=== PATIENT | male | born 1955 | race Caucasian/White ===

== ENCOUNTER 2018-02-06 10:25 | Outpatient (REF) | payer BC, SELFPAY ==
[2018-02-06 19:55] LABS: Anion Gap 8.3 mmol/L (3-11); BUN 22 mg/dL (7-18); CO2 29.7 mmol/L (21.0-32.0); CREATININE 1.14 mg/dL (0.70-1.30); Chloride 100 mmol/L (98-107); Glucose 105 mg/dL (70-100); Potassium 4.7 mmol/L (3.5-5.1); Sodium 138 mmol/L (136-145)
== END 2018-02-06 10:45 ==
LOC: NCHCN 10:25
PROVIDERS: Visit Provider Physician Assistant Medical
DX: I10 Essential (primary) hypertension (principal)
CPT/HCPCS: 80048

== ENCOUNTER 2020-02-25 14:06 | Outpatient (REF) | payer BC, SELFPAY ==
[2020-02-25 20:06] LABS: Anion Gap 9.7 mmol/L (3-11); BUN 18 mg/dL (7-18); CO2 27.3 mmol/L (21.0-32.0); CREATININE 1.04 mg/dL (0.70-1.30); Calcium 8.9 mg/dL (8.5-10.1); Calculated LDL 167 mg/dL (<100); Chloride 101 mmol/L (98-107); Cholesterol 219 mg/dL (<200); Glucose 106 mg/dL (74-106); HDL Cholesterol 33 mg/dL (40-60); Potassium 4.4 mmol/L (3.5-5.1); Sodium 138 mmol/L (136-145); Triglyceride 96 mg/dL (<150)
== END 2020-02-25 14:26 ==
LOC: NCHCN 14:06
PROVIDERS: Visit Provider Nurse Practitioner Family
DX: E78.5 Hyperlipidemia, unspecified (principal); I10 Essential (primary) hypertension
CPT/HCPCS: 80048; 80061

== ENCOUNTER 2020-05-12 16:15 | Outpatient (REF) | payer BC, SELFPAY ==
[2020-05-12 19:43] LABS: ALT 53 U/L (16-63); AST 30 U/L (15-37); Calculated LDL 62 mg/dL (<100); Cholesterol 122 mg/dL (<200); HDL Cholesterol 32 mg/dL (40-60); Triglyceride 141 mg/dL (<150)
== END 2020-05-12 16:35 ==
LOC: NCHCN 16:15
PROVIDERS: PCP Nurse Practitioner Family; Visit Provider Nurse Practitioner Family
DX: E78.5 Hyperlipidemia, unspecified (principal); I10 Essential (primary) hypertension
CPT/HCPCS: 80061; 84450; 84460

== ENCOUNTER 2021-02-24 14:19 | Outpatient (REF) | payer MEDICARE, SELFPAY ==
[2021-02-24 19:56] LABS: ALT 43 U/L (16-63); AST 23 U/L (15-37); Albumin 3.9 g/dL (3.4-5.0); Alkaline Phosphatase 80 U/L (46-116); Anion Gap 6.2 mmol/L (3-11); BUN 21 mg/dL (7-18); Bilirubin, Total 1.1 mg/dL (0.2-1.0); CO2 29.8 mmol/L (21.0-32.0); CREATININE 1.1 mg/dL (0.70-1.30); Chloride 103 mmol/L (98-107); Glucose 108 mg/dL (74-106); Potassium 4.6 mmol/L (3.5-5.1); Sodium 139 mmol/L (136-145); Total Protein 7.1 g/dL (6.4-8.2)
== END 2021-02-24 14:20 | disposition home or self-care (01) ==
LOC: NCHCN 14:19
PROVIDERS: PCP Nurse Practitioner Family; Visit Provider Nurse Practitioner Family
DX: I10 Essential (primary) hypertension (principal)
CPT/HCPCS: 80053

== ENCOUNTER 2021-08-25 10:14 | Outpatient (REF) | payer MEDICARE, SELFPAY ==
[2021-08-25 18:59] LABS: ALT 41 U/L (16-63); AST 23 U/L (15-37); Albumin 4.1 g/dL (3.4-5.0); Alkaline Phosphatase 75 U/L (46-116); Anion Gap 8.2 mmol/L (3-11); BUN 19 mg/dL (7-18); Bilirubin, Total 1.5 mg/dL (0.2-1.0); CO2 25.8 mmol/L (21.0-32.0); CREATININE 1.1 mg/dL (0.70-1.30); Calcium 8.7 mg/dL (8.5-10.1); Chloride 102 mmol/L (98-107); Glucose 104 mg/dL (74-106); Potassium 4.2 mmol/L (3.5-5.1); Sodium 136 mmol/L (136-145); Total Protein 7.3 g/dL (6.4-8.2)
[2021-08-26 18:10] LABS: PSA, Screening 2.2 ng/mL (<=4.5)
== END 2021-08-25 10:15 | disposition home or self-care (01) ==
LOC: NCHCN 10:14
PROVIDERS: PCP Nurse Practitioner Family; Visit Provider Nurse Practitioner Family
DX: I10 Essential (primary) hypertension (principal); E78.5 Hyperlipidemia, unspecified; Z12.5 Encounter for screening for malignant neoplasm of prostate
CPT/HCPCS: 80053; 84153

== ENCOUNTER 2022-08-24 12:37 | Outpatient (REF) | payer MEDICARE, SELFPAY ==
[2022-08-24 18:50] LABS: ALT 36 U/L (16-63); AST 24 U/L (15-37); Albumin 3.9 g/dL (3.4-5.0); Alkaline Phosphatase 82 U/L (46-116); BUN 24 mg/dL (7-18); Bilirubin, Total 1.1 mg/dL (0.2-1.0); CREATININE 1.2 mg/dL (0.70-1.30); Calcium 9.4 mg/dL (8.5-10.1); Chloride 102 mmol/L (98-107); Glucose 108 mg/dL (74-106); Sodium 139 mmol/L (136-145); Total Protein 7.7 g/dL (6.4-8.2)
== END 2022-08-24 12:38 | disposition home or self-care (01) ==
LOC: NCHCN 12:37
PROVIDERS: PCP Nurse Practitioner Family; Visit Provider Nurse Practitioner Family
DX: I10 Essential (primary) hypertension (principal)
CPT/HCPCS: 80053

== ENCOUNTER 2024-02-28 13:08 | Outpatient (REF) | payer MEDICARE, SELFPAY ==
--- OUTSIDE RECORDS SUMMARY | 2024-02-28 13:20 | XMS_ITS | Encounter Summary ---
Author Organization [facility] Address [facility] [place] [address] Care Team Providers Care Enterprise Manager Name Role Phone Kamran Boo MD Primary Care Provider [phone] Reason for Visit * Reason Comments Skin Check * Consultation (Routine) - Closed Specialty Diagnoses / Procedures Referred By Antony t Referred To Contact Dermatology Diagnoses Other specified acute skin changes due to ultraviolet radiation Veronika Siddiqui APRN [address] [place] [address] Louie Oh MD [address] [place] [address], [facility] [place] [address] Referral ID Status Reason Start Date Expiration Date V isits Requested Visits Authorized [id number] Closed Consult, Test & Treat PCP Updated and/or Approved 08/31/2022 08/31/2023 1 1 Encounter Details Date Type Department Care Team (Late st Contact Info) Description 12/16/2022 3:15 PM EDT Office Visit Dermatology at [address] [address] Louie Oh MD [address] [place] [address], [facility] DERMATOLOGY [place], [place] [id number] Nevus of back Social History Tobacco Use Types Packs/Day Years Used Date Smoking Tobacco: Former Smokeless Tobacco: Never Alcohol Use Standard Drinks/Week Comments Yes 0 (1 standard drink = 0.6 oz pur e alcohol) 5/nightly Sex and Gender Information Value Date Recorded Sex Assigned at Not on file Gender Identity Not on file Sexual Orientation Not on file documented as of this encounter Progress Notes * Louie Oh MD - 12/16/2022 3:15 PM EDT Problem: Skin checkup Carlos is a 66-year-old gentleman who is referred by his PCP Veronika Siddiqui for general skin checkup.He grew up in [place] and now lives in [facility]. He denies any personal family history of skin cancer. He has been seen in the past by Dr. Tiny Meza and had a benign examination at that time as well. He does have a sore area on his left ear. Physical examination reveals well tanned 66-year-old gentleman who has solar elastotic nodules on the superior lateral helical rim of the left ear but without any areas of discrete erosion or hyperkeratosis. This is suggestive of early chondrodermatitis nodularis helicis. I do not see any malignancy. Examination reveals a number of Elmo telangiectasias on his chest shoulders and back without any in the oral cavity. He does not have any history of bleeding/GI bleeding to suggest Osler Leahy Rendu. He has benign examination of the head and the neck the chest the back the hands on forearms without any evidence of any cutaneous malignancies. Assessment plan: Benign skin examination 1. Patient reassured about his benign skin examination 2. Reinforced sun avoidance precautions 3. Recommend return to clinic on an as needed basis. CNH left ear 1. 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 Again discussed ability of sleeping on his right side or back keeping pressure off of the left ear. 3. Reassured about the benign nature of this condition. CC: Kamran Boo MD documented in this encounter Plan of Treatment Not on file documented as of this encounter Visit Diagnoses Diagnosis Nevus of back Benign neoplasm of skin of trunk, except scrotum documented in this encounter Care Teams Enterprise Manager Relationship Specialty Start Date End Date Kamran Boo MD [address] [place] [id number] PCP - General General Internal Medicine 03/19/20 documented as of this encounter
--- OUTSIDE RECORDS SUMMARY | 2024-02-28 13:20 | XMS_ITS | Clinical Summary ---
Author Organization [facility] Address [address] [place] [address] Care Team Providers Care Environmental Marketer Name Role Phone Unavailable Primary Care Provider Unavailabl e Social History Tobacco Use Types Packs/Day Years Used Date Smoking Tobacco: Never Assessed Sex and Gender Information Value Date Recorded Sex Assigned at Not on file Gender Identity Not on file Sexual Orientation Not on file Plan of Treatment Health Maintenance Due Date Last Done Comments Hepatitis C Screen 1955 RSV Immunization ( o r 60+ Years) (1 - 1-dose 60+ series) 2015 Fall Risk Screening 12/26/2020 COVID-19 Vaccine ( season) 2023
--- OUTSIDE RECORDS SUMMARY | 2024-02-28 13:20 | XMS_ITS ---
Author Organization Unknown ALLERGIES AND ADVERSE REACTIONS No information ASSESSMENT No information CHIEF COMPLAINT No information MEDICATIONS No information OBJECTIVE DATA No information PHYSICAL EXAMINATION No information TREATMENT PLAN Planned Care Start Date Provider Encounter for Check-up [id number] PROBLEMS No information RESULTS No information REVIEW OF SYSTEMS No information SUBJECTIVE DATA No information VITAL SIGNS No information
--- OUTSIDE RECORDS SUMMARY | 2024-02-28 13:20 | XMS_ITS | Encounter Summary ---
Author Organization [facility] [place] [address] Care Team Providers Care Binding End Stitcher Name Role Phone Kamran Boo MD Primary Care Provider [phone] Reason for Visit * Reason Comments Skin Lesion left ear skin lesion , f/u Encounter Details Date Type Department Care Team (Latest Contact Info) Description 07/16/2020 9:00 AM EST Office Visit Dermatology at [address] [phone] Tiny Meza MD [address] [place] [id number] Chondrodermatitis nodularis helicis of left ear; Neoplasm of uncertain behavior Social History Tobacco Use Types Packs/Day Years Used Date Smoking Tobacco: Former Smokeless Tobacco: Never Alcohol Use Standard Drinks/Week Comments Yes 0 (1 standard drink = 0.6 oz pur e alcohol) 5/nightly Sex and Gender Information Value Date Recorded Sex Assigned at Not on file Gender Identity Not on file Sexual Orientation Not on file documented as of this encounter Last Filed Vital Signs Vital Sign Reading Time Taken Comments Blood Pressure - - Pulse - - Temperature - - Respiratory Rate - - Oxygen Saturation - - Inhaled Oxygen Concentration - - Weight 81.6 kg (180 lb) 07/16/2020 9:00 AM EST Height 170.2 cm (5' 7) 07/16/2020 9:00 AM EST Body Mass Index 28.19 07/16/2020 9:00 AM EST documented in this encounter Progress Notes * Tiny Meza MD - 07/16/2020 9:00 AM EST DERMATOLOGY - ESTABLISHED PATIENT FOLLOW-UP Date of service: 07/16/2020 Carlos Waterman : 1955, 64 y.o. CC: f/u [facility] HPI: Carlos Waterman is a 64 y.o. male last seen by me on 03/19/2020. Mr. Waterman returns today for f/u [facility] s/p cryo at last visit which helped but then lesion grew back and is now irritating. He would like it removed. Relevant Skin History: - Okay to leave detailed message with results? yes Skin Cancer History Family History: Melanoma: none Social History: - n/a Medications: Current Outpatient Medications Medication Sig Dispense Refill ??? atorvastatin (Lipitor) 40 mg Tablet TAKE 1 TABLET BY MOUTH AT BEDTIME ??? hydroCHLOROthiazide (Hydrodiuril) 12.5 mg Tablet Take 12.5 mg by mouth daily. ??? lisinopriL (Prinivil;Zestril) 10 mg Tablet TAKE ONE TABLET BY MOUTH EVERY DAY No current facility-administered medications for this visit. Allergies: No Known Allergies Review of Systems: - General: Feels well. - Skin: No other skin concerns. Examination: - Constitutional: Patient was alert, well-appearing and in no noticeable distress. - Skin: Skin examination of the left ear Diagnosis/Skin findings/Assessment/Plan: 1. Neoplasm uncertain behavior, left helix 4 mm crusted white papule - Rule out chondrodermatitis nodularis helices vs AK BIOPSY PROCEDURE NOTE LOCATION: left ear helix Verbal consent was given by patient to obtain and chart photographs into [facility] if applicable. Verbal consent obtained to perform a diagnostic skin biopsy after risks and benefits of the procedure were reviewed with the patient including but not limited to bleeding, infection, scar, cosmetic defect, recurrence, damage to underlying structures and failure to diagnose. SHAVE BIOPSY After swabbing the area with isopropyl alcohol, the area was anesthetized with Lidocaine with 1:100,000 epinephrine and a biopsy was taken. Hemostasis obtained and the wound was dressed with Vaselineand a dressing. There were no complications. The patient tolerated the procedure well. Post-procedure expectations, wound care and activity restrictions were reviewed. The patient was told to expect results by the end of 2 weeks, and to call if they have not receivedthe results by that time. RTC: One month or PRN The following photos were obtained with patient consent: Note initiated by Tiny Meza MD. Tiny Meza MD Production Worker Department of Dermatology [facility] documented in this encounter Plan of Treatment Not on file documented as of this encounter Procedures Procedure Name Priority Date/Time Associated Diagnosis Comments SPECIMEN TO PATHOLOGY Routine 07/16/2020 9:26 AM EST Neoplasm of uncertain behavior documented in this encounter Results * Specimen to Pathology (07/16/2020 9:26 AM EST) AP Specimen 07/16/2020 9:26 AM EST 07/16/2020 9:26 AM EST Narrative [facility] - 07/16/2020 9:26 AM EST Specimen requisition ordered. ??Separate Pathology report to follow Tiny Meza MD PATHOLOGY/CYTOLOGY ORDERABLES Performing Organization Address City/State/[facility] Co de Phone Number [facility] [place] [address] documented in this encounter Visit Diagnoses Diagnosis Chondrodermatitis nodularis helicis of left ear Neoplasm of uncertain behavior Neoplasm of uncertain behavior, site unspecified documented in this encounter Care Teams Binding End Stitcher Relationship Specialty Start Date End Date Kamran Boo MD [address] [place] [id number] PCP - General General Internal Medicine 03/19/20 documented as of this encounter
--- OUTSIDE RECORDS SUMMARY | 2024-02-28 13:20 | XMS_ITS | Continuity of Care Document ---
Author Organization [facility] Address [address] [place] [address] Care Team Providers Care Speech Language Therapist Name Role Phone [facility], Kamran Hoyt Primary Care Physician [facility] Date(s): 03/04/23 - 03/04/23 [facility] [address] [place] [address] Encounter Diagnosis Obstructive sleep apnea, adult(Discharge Diagnosis) - 03/04/23 Discharge Disposition: Home or Self Care Attending Physician: Roseanne Godinez [employer]AL [employer] JUDGE Allergies, Adverse Reactions, Alerts No Known Allergies Assessment and Plan Future Appointments Immunizations Given and Recorded Vaccine Date Status Refusal Reason influenza virus vaccine, inactivated 02/23/22 Compa rded SARS-CoV-2 (COVID-19) mRNA BNT-162b2 vax 1 02/02/22 Recorded SARS-CoV-2 (COVID-19) mRNA-1273 vaccine 08/31/21 R ecorded SARS-CoV-2 (COVID-19) mRNA-1273 vaccine 03/09/21 R ecorded SARS-CoV-2 (COVID-19) mRNA-1273 vaccine 07/02/20 R ecorded SARS-CoV-2 (COVID-19) mRNA-1273 vaccine 06/04/20 R ecorded influenza virus vaccine, live 02/24/21 Recorded influenza virus vaccine, live 03/14/19 Recorded 1Result Comment: BIVALENT BOOSTER Medications aspirin 81 mg oral capsule 81 mg = 1 cap, Oral, Daily, do not exceed 48 capsules in 24 hours, # 30 cap, 0 Refill(s) Start Date: 12/22/22 Status: Ordered Fish Oil oral capsule 1 cap, Oral, Daily, # 100 cap, 0 Refill(s) Start Date: 12/22/22 Status: Ordered hydroCHLOROthiazide 12.5 mg oral capsule 12.5 mg = 1 cap, Oral, Daily, # 30 cap, 0 Refill(s) Start Date: 12/22/22 Status: Ordered lisinopril 10 mg oral tablet 10 mg = 1 tab, Oral, Daily, # 30 tab, 0 Refill(s) Start Date: 12/22/22 Status: Ordered rosuvastatin 10 mg oral capsule 10 mg = 1 cap, Oral, Daily, # 30 cap, 0 Refill(s) Start Date: 12/24/22 Status: Ordered Viagra 0 Refill(s) Start Date: 12/22/22 Status: Ordered Problem List Condition Confirmation Course Effective Dates Status H ealth Status Informant Elevated bilirubin Confirmed Active CNH (chondrodermatitis nodularis helicis) Confirmed Active Foot anomaly, congenital Confirmed Active Rotator cuff syndrome Confirmed Active ED (erectile dysfunction) Confirmed Active Former smoker Confirmed Active Heavy alcohol consumption Confirmed Active Hyperlipidemia Confirmed Active Hypertension Confirmed Active Marijuana use Confirmed Active Myalgia Confirmed Active Nocturia Confirmed Active Obesity Confirmed Active Obstructive sleep apnea, adult Confirmed Active Screening for prostate cancer Confirmed Active Snoring Confirmed Active Sun-damaged skin Confirmed Active Vital Signs Most recent to oldest [Reference Range]: 1 Peripheral Pulse Rate [60-100 bpm] 86 bp m (03/04/23 9:08 AM) Blood Pressure [90-140/60-90 mmHg] 123/7 7mmHg (03/04/23 9:08 AM) Mean Arterial Pressure, Cuff [65-140 mmH g] 92 mmHg (03/04/23 9:08 AM) Weight 83.91 kg (03/04/23 9:08 AM) Weight Measured (lbs) 184.99 lb (03/04/23 9:08 AM) Height 169 cm (03/04/23 9:08 AM) Height/Length Measured (inches) 66.54 in ch (03/04/23 9:08 AM) BSA Measured 1.98 m2 (03/04/23 9:08 AM) Body Mass Index 29.38 kg/m2 (03/04/23 9:08 AM) Social History Social History Type Response Tobacco Former tobacco user Tobacco Use:. Sex Male Physician Outpatient Note * Roseanne Godinez TRIAL [address] JUDGE: PERFORM Event Display: Office Clinic Note Physician Authored Date: [id number] CARLOS LAMB :1955 Age:67 years Sex:Male Visit Date:03/04/2023 Primary Care Physician: [facility], Kamran Hoyt MD History of Present Illness Carlos Lamb has a visit for PSG results. ?? Carlos was see by me on 12/24/2022. He has a medical history to include HTN, HLD, ED, and overweight. ?? He noted symptoms of snoring, excessive daytime sleepiness (ESS 11 with a daily nap), witnessed apneas in sleep, nocturnal choking/gasping, and??nocturia. ?? Polysomnogram was completed on??02/10/2023 (BMI 29.4) and I reviewed the results with??him in detailtoday. Sleep efficiency was 63%, AHI 34.9/hr, RDI 54.7/hr, REM AHI 41.4/hr, REM RDI 54.3/hr, supineAHI 35/hr, right lateral AHI N/A, left lateral AHI N/A, sp02 yevgeniy 79%,??28 minutes were spent at asaturation <88%, arousal index 47/hr, PLMi 1.7/hr, PLM arousal index 0/hr. EKG showed NSR with ra re PVCs. ? Carlos says his sleep for the PSG was??worse ??compared to a typical night at home. He still has above symptoms and no new sleep complaints today. He says he tends to sleep most of the night on his back. Physical Exam Vitals & Measurements HR:??86??(Peripheral)?? BP:??123/77?? SpO2:??96%?? HT:??169??cm?? WT:??83.91??kg?? BMI:??29.38?? BSA:??1.98?? GENERAL: answers questions appropriately, well groomed, over weight. HEAD: normocephalic and atraumatic. EYES: non icteric LUNGS: CTA all león. Good air movement throughout. CARDIO: RRR without murmur, gallop or thrill. NEURO: alert and oriented, normal gait. PYSCH: normal mood and affect. CUTANEOUS: no overt lesions or rashes.?? Clinic Assessment/Plan 1.??Obstructive sleep apnea, adult??G47.33 SANDRINE diagnosed on recent PSG with an AHI of 35/hr. He slept only supine for the study but he reportshe typically only sleeps supine at home as well. Given the severity of his sleep apnea, CPAP is therecommended treatment. CPAP 6-16 cm is ordered through [facility] in [place] as he wants an in person set-up with a RT and not to have the CPAP mailed to him with a remote set-up. I discussed di fferent mask options and the importance of finding the mask that will work for him within the first30 days. I discussed how to adjust humidity for dryness/congestion and that the goal will be to usenightly for total sleep time. I covered insurance compliance requirements and the DME's mask exchange policy.?? I will see him back between 31-90 days after starting CPAP and??he is ??encouraged to call me sooner he is having any difficulties tolerating CPAP. Drowsy driving precautions were reviewed. I provided greater than 30 minutes in the care of this patient, more than half the time was spent in [id number] counseling. Problem List/Past Medical History Ongoing CNH (chondrodermatitis nodularis helicis) ED (erectile dysfunction) Elevated bilirubin Foot anomaly, congenital Former smoker Heavy alcohol consumption Hyperlipidemia Hypertension Marijuana use Myalgia Nocturia Obesity Obstructive sleep apnea, adult Rotator cuff syndrome Screening for prostate cancer Snoring Sun-damaged skin Historical No qualifying data Medications What How Much When Instructions Unchanged aspirin (aspirin 81 mg oral capsule) 1 Capsules Oral (given by mouth) Every day do not exceed 48 capsules in 24 hours Contact prescribing physician if questions or concerns ?? Unchanged hydroCHLOROthiazide (hydroCHLOROthiazide 12.5 mg oral capsule) 1 Capsules Oral (given by mouth) Every day Contact prescribing physician if questions or concerns ?? Unchanged lisinopril (lisinopril 10 mg oral tablet) 1 tab Oral (given by mouth) Every day Contact prescribing physician if questions or concerns ?? Unchanged omega-3 polyunsaturated fatty acids (Fish Oil oral capsule) 1 Capsules Oral (given by mouth) Every day Contact prescribing physician if questions or concerns ?? Unchanged rosuvastatin (rosuvastatin 10 mg oral capsule) 1 Capsules Oral (given by mouth) Every day Contact prescribing physician if questions or concerns ?? Unchanged sildenafil (Viagra) Contact prescribing physician if questions or concerns ?? Allergies No Known Allergies Social History Electronic Cigarette/Vaping Electronic Cigarette Use: Never. Tobacco Former tobacco user Tobacco Use:. Immunizations Vaccine Date Status influenza virus vaccine, inactivated 02/23/2022 Recorded SARS-CoV-2 (COVID-19) mRNA BNT-162b2 vax 02/02/2022 Recorded Comments : BIVALENT BOOSTER SARS-CoV-2 (COVID-19) mRNA-1273 vaccine 08/31/2021 Recorded SARS-CoV-2 (COVID-19) mRNA-1273 vaccine 03/09/2021 Recorded influenza virus vaccine, live 02/24/2021 Recorded SARS-CoV-2 (COVID-19) mRNA-1273 vaccine 07/02/2020 Recorded SARS-CoV-2 (COVID-19) mRNA-1273 vaccine 06/04/2020 Recorded influenza virus vaccine, live 03/14/2019 Recorded Electronically Signed on 03/04/23 09:36 AM Roseanne Godinez NP Patient Care team information Care Team Personnel Name: Kamran Melendrez MD Position: No Access Member Role: Primary Care Physician Address: Address: [address] Care Team Related Persons Name: NETTIE MARIEE
--- OUTSIDE RECORDS SUMMARY | 2024-02-28 13:20 | XMS_ITS | Encounter Summary ---
Author Organization [facility] Address [address] [place] [address] Care Team Providers Care Vp Platforms Name Role Phone Unavailable Primary Care Provider Unavailabl e Encounter Details Date Type Department Care Team (Late st Contact Info) Description 08/25/2021 Lab Requisition [facility] Pathology & Laboratory Medicine - [facility] [address] [place] [address] Outr Resulting Lab, Provider Social History Tobacco Use Types Packs/Day Years Used Date Smoking Tobacco: Never Assessed Sex and Gender Information Value Date Recorded Sex Assigned at Not on file Gender Identity Not on file Sexual Orientation Not on file documented as of this encounter Plan of Treatment Not on file documented as of this encounter Procedures Procedure Name Priority Date/Time Associated Diagnosis Comments PSA TOTAL, DIAGNOSTIC Routine 08/25/2021 9:30 EDT documented in this encounter Results * PSA TOTAL, DIAGNOSTIC (08/25/2021 9:30 EDT) PSA 2.2 <=4.5 ng/mL 08/26/2021 18:06 EDT [facility] Blood VENOUS BLOOD / Unknown 08/25/2021 9:30 EDT 08/26/2021 16:44 EDT Narrative [facility] - 08/26/2021 18:06 EDT NOTE: Serum PSA concentration should not be interpreted as absolute evidence for the presence or absence of malignant disease. Assayed on Siemens ADVIA Centaur XPT using chemiluminescent technology.??Values obtained by using different assay methods cannot be used interchangeably. Provider Outr Resulting Lab CHEMISTRY & BLOOD GAS ORDERABLES [facility] [address] [place] [address] documented in this encounter Visit Diagnoses Not on filedocumented in this encounter
--- OUTSIDE RECORDS SUMMARY | 2024-02-28 13:20 | XMS_ITS | Clinical Summary ---
Author Organization [facility] Address [facility] [place] [address] Care Team Providers Care Net Manager Name Role Phone Kamran Boo MD Primary Care Provider [phone] Allergies No known active allergies Medications Medication Sig Dispensed Refills Start Date End Date Status hydroCHLOROthiazide (Hydrodiuril) 12.5 mg Tablet Take 12.5 mg by mouth daily. 02/23/2020 Active lisinopriL (Prinivil;Zestril) 10 mg Tablet TAKE ONE TABLET BY MOUTH EVERY DAY 12/31/2019 Active rosuvastatin (Crestor) 10 mg tablet Take 10 mg by mouth nightly. 12/01/2022 Active Active Problems Problem Noted Date Diagnosed Date Foot anomaly, congenital 07/15/2020 Chondrodermatitis nodularis helicis 05/16/2020 Telangiectasis 05/16/2020 Overview (07/15/2020): Back, scattered Pepper angioma 05/16/2020 Overview (07/15/2020): On back and chest Ear lesion 03/04/2020 Hyperlipidemia 03/04/2020 Hypertension 03/04/2020 Rotator cuff syndrome of right shoulder 03/04/20 20 Male erectile dysfunction 03/04/2020 Alcoholism 03/04/2020 Overview (07/15/2020): Daily alcohol use Cigarette smoker 03/04/2020 Marijuana use 03/04/2020 Social History Tobacco Use Types Packs/Day Years Used Date Smoking Tobacco: Former Smokeless Tobacco: Never Alcohol Use Standard Drinks/Week Comments Yes 0 (1 standard drink = 0.6 oz pur e alcohol) 5/nightly Sex and Gender Information Value Date Recorded Sex Assigned at Not on file Gender Identity Not on file Sexual Orientation Not on file Last Filed Vital Signs Vital Sign Reading Time Taken Comments Blood Pressure - - Pulse - - Temperature - - Respiratory Rate - - Oxygen Saturation - - Inhaled Oxygen Concentration - - Weight 81.6 kg (180 lb) 07/16/2020 9:00 AM EST Height 170.2 cm (5' 7) 07/16/2020 9:00 AM EST Body Mass Index 28.19 07/16/2020 9:00 AM EST Plan of Treatment Health Maintenance Due Date Last Done Comments CT Colonography 1955 Colonoscopy 1955 Colorectal Cancer Screening 1955 FIT DNA 1955 FIT 1955 Sigmoidoscopy (10 year) with FIT yearly 1955 Sigmoidoscopy 1955 Pneumoccocal Vaccine: 65+ (1 of 2 - PCV) 12/26/1961 Hepatitis C Screening 12/26/1973 Tetanus/Diphtheria/Pertussis Vaccines (1 - Tdap) 12/26 Zoster vaccine (1 of 2) 12/26/2005 Advance Directive 12/26/2010 AAA Screen 12/26/2020 Covid-19 Vaccine (1 - 2022- season) 2024 Influenza (Flu) vaccine (1 o f 1 - Influenza standard series) 01/15/2024 Care Teams Net Manager Relationship Specialty Start Date End Date Kamran Boo MD [address] [place] [address] PCP - General General Internal Medicine 03/19/20
--- OUTSIDE RECORDS SUMMARY | 2024-02-28 13:20 | XMS_ITS | Encounter Summary ---
Author Organization [facility] Address [facility] [place] [address] Care Team Providers Care Dish Up Person Name Role Phone Kamran Boo MD Primary Care Provider [phone] Reason for Visit * Reason Comments Skin Lesion * Consultation (Routine) - Specialty Diagnoses / Procedures Referred By Contmilton t Referred To Contact Dermatology Diagnoses Other specified disorders of left ear LT Ear Lesion; New Patient-Notes Received Procedures Consult Sharonda Villela, RAILROAD CARMAN [address] [place] [address] Tiny Meza MD [address] [place] [id number] Referral ID Status Reason Start Date Expiration Date V isits Requested Visits Authorized [id number] Consult, Test & Treat PCP Updated and/or Approved 02/25/2020 08/25/2020 6 6 Encounter Details Date Type Department Care Team (Latest Contact Info) Description 03/19/2020 10:45 AM EST Office Visit Dermatology at [address] [phone] Tiny Meza MD [address] [place] [id number] Chondrodermatitis nodularis helicis, unspecified laterality; Pepper angioma; Telangiectasia of skin Social History Tobacco Use Types Packs/Day Years Used Date Smoking Tobacco: Never Assessed Sex and Gender Information Value Date Recorded Sex Assigned at Not on file Gender Identity Not on file Sexual Orientation Not on file documented as of this encounter Progress Notes * Tiny Meza MD - 03/19/2020 10:45 AM EST Images from the original note were not included. DERMATOLOGY - NEW PATIENT NOTE Date of service: 03/19/2020 Carlos Waterman : 1955, 64 y.o. Chief Complaint: Chief Complaint Patient presents with ??? Skin Lesion HPI: Carlos Waterman is a 64 y.o. male referred by Sharonda Villela APRN with the following concerns: Here today for a skin lesion on his left ear. It has been present for a couple of years. It is painful when he sleeps on it. Relevant Skin History - Okay to leave detailed message with results? yes - Skin cancer (including type): no Family History: Melanoma: no Relevant Social History: - -l[facility] in [facility] Meds: No current outpatient medications on file. No current facility-administered medications for this visit. Allergies: Not on File Review of Systems: - General: Feels well - Skin: No other skin concerns. Examination: - Constitutional: Patient was alert, well-appearing and in no noticeable distress. - Focused Exam: Skin examination of the left ear , face, scalp, chest, abdomen, neck, back and armswas normal with the exception of the findings listed below - A nurse/MA was present and on standby during my examination. Diagnosis/Skin findings/Assessment/Plan: 1. Chondrodermatitis Nodularis Helicis [firm, mildly tender, pale bead-like papules along the inferior edge of the left superior helical rim] - etiology stemming from chronic irritation and actinic exposure leading to inflammation of underlying cartilage reviewed with patient - discussed treatment strategies such as silicone gel sheets, special foam cutout pillows, and other methods to reduce pressure on the affected area. Also discussed cryotherapy vs biopsy if lesion isvery irritating - no significant inflammation to address with potent topical steroids - differential dx of AK vs SCC also reviewed and patient advised to RTC for repeat evaluation and biopsy if sx worsen. Biopsy of site offered today. Patient elected for cryotherpay and will return inone month if lesion has not resolved. After the risks and benefits of the procedure were reviewed with the patient including but not limited to pain, blistering, bleeding, infection, scar, hypopigmentation, cosmetic defect, recurrence, and damage to underlying structures, and despite these risks, the patient wished to proceed. Lesions were treated with liquid nitrogen using the cryospray method technique with 2-3 mm ennis margins andwith 2 freeze-thaw cycles. The patient tolerated the procedure well without complications. Local care discussed and the patient was sent home with a wound care sheet. All questions were answered. 2. Matted telangiectasias, back, scattered - discussed that this could be related to the 5 drinks he has per night and that he should have liver enzymes checked with PCP. 3. Pepper Angioma(s), bright red 2-3 mm papules on back and chest -benign, ressured RTC: One month if not resolved Note initiated by JAGJIT SOMERS LPN. I, JAGJIT SOMERS LPN, have performed the documentation for this encounter in the presence of and acting as a scribe for Tiny Meza MD. I performed the services which were documented by the scribe, and I agree with the accuracy of the documentation in this encounter. Tiny Meza MD Reviewed and signed by Tiny Meza MD Department of Dermatology [facility] documented in this encounter Plan of Treatment Not on file documented as of this encounter Visit Diagnoses Diagnosis Chondrodermatitis nodularis helicis, unspecified laterality Pepper angioma Nevus, non-neoplastic Telangiectasia of skin Other and unspecified capillary diseases documented in this encounter Care Teams Dish Up Person Relationship Specialty Start Date End Date Kamran Boo MD [address] [place] [id number] PCP - General General Internal Medicine 03/19/20 documented as of this encounter
--- OUTSIDE RECORDS SUMMARY | 2024-02-28 13:20 | XMS_ITS | Encounter Summary ---
Author Organization [facility] Address [facility] [place] [address] Care Team Providers Care Excel Vba Developer Name Role Phone Kamran Boo MD Primary Care Provider [phone] Encounter Details Date Type Department Care Team (Latest Contact Info) Description 07/16/2020 1:07 PM EST - 07/16/2020 11:59 PM EST Hospital En[place] [id number] Discharge Disposition: Home Social History Tobacco Use Types Packs/Day Years Used Date Smoking Tobacco: Former Smokeless Tobacco: Never Alcohol Use Standard Drinks/Week Comments Yes 0 (1 standard drink = 0.6 oz pur e alcohol) 5/nightly Sex and Gender Information Value Date Recorded Sex Assigned at Not on file Gender Identity Not on file Sexual Orientation Not on file documented as of this encounter Medications at Time of Discharge Medication Sig Dispensed Refills Start Date End Date hydroCHLOROthiazide (Hydrodiuril) 12.5 mg Tablet Take 12.5 mg by mouth daily. 02/23/2020 lisinopriL (Prinivil;Zestril) 10 mg Tablet TAKE ONE TABLET BY MOUTH EVERY DAY 12/31/2019 atorvastatin (Lipitor) 40 mg Tablet TAKE 1 TABLET BY MOUTH AT BEDTIME 03/12/2020 12/16/2022 documented as of this encounter Progress Notes * Tiny Meza MD - 07/16/2020 11:59 PM EST Can you inform patient the results are benign * Kati Severino LPN - 07/16/2020 11:59 PM EST Spoke with patient today regarding his biopsy results. Per Dr. Meza his biopsy results showedCNH. Explained the benign nature and discussed to off load the pressure from that ear. He understands. documented in this encounter Plan of Treatment Not on file documented as of this encounter Procedures Procedure Name Priority Date/Time Associated Diagnosis Comments SURGICAL PATHOLOGY REPORT Routine 07/16/2020 9:25 AM EST documented in this encounter Results * Surgical Pathology Report (07/16/2020 9:25 AM EST) Final Diagnosis [id number] ? Location: [facility] The signing pathologist has (i) examined the relevant preparation(s) for the specimen(s) and (ii) rendered or confirmed the diagnosis(es). . ?Surgical Pathology DIAGNOSIS Left helix, skin shave ?? biopsy: - Epidermal defect with fibrin and granulation tissue, compatible with surface of ??chondrodermat itis nodularis helicis, transected Electronically signed by: ??Rc Munoz MD Verified: ??07/22/2020 ?Dermatopathol ogist Performed at: ??-[facility] Dept. of Pathology, [place], [place] DISCUSSION The biopsy has an epidermal defect with fibrin and granulation tissue, as well as rare cells that can be seen at the surface of auricular cartilage. In this context, a definitive diagnosis of CNH (chondrodermati tis nodularis helicis) may not be feasible, but if the clinical setting is appropriate, the diagnosis can still be suggested [1]. CITATIONS 1) ??Sandi Conteh, Melissa Whiteside, Nghia Wilkins's Pathology of the Skin with Clinical Correlations. 4th ed. [place]: ?? Elsevier Choudh[employer]. 2012. pp. 325. ADDITIONAL STUDIES Interpretation of multiple step-leveled slide sections confirms the diagnosis above. SPECIMEN(S) SUBMITTED A - Skin, left helix CLINICAL INFORMATION 4 mm white crusted papule on the left helix SPECIMEN PROCESSING A - Labeled/Fixativ e: Patient demographics, formalin. Quantity/Size: ??Single, 0.7 x 0.4 cm. Tissue Description: Shave of a molina-white skin papule. Sections/Proces sing: Inked, trisected and entirely submitted in 1 cassette labeled A1. ??ajw 07/22/2020 7:51 PM EST [facility] SPECIMEN FROM SKIN / Unknown 07/16/2020 9:25 AM EST 07/16/2020 9:25 AM EST Tiny Meza MD PATHOLOGY/CYTOLOGY ORDERABLES [facility] [place] [address] documented in this encounter Visit Diagnoses Not on filedocumented in this encounter Care Teams Excel Vba Developer Relationship Specialty Start Date End Date Kamran Boo MD [address] [place] [id number] PCP - General General Internal Medicine 03/19/20 documented as of this encounter
--- OUTSIDE RECORDS SUMMARY | 2024-02-28 13:20 | XMS_ITS | Continuity of Care Document ---
Author Organization [facility] Address [address] [place] [address] Care Team Providers Care Associate Store Manager Name Role Phone Primeau IPHC, Kamran Hoyt Primary Care Physician Encounter [facility] Date(s): 02/14/23 - 02/14/23 [facility] [address] [place] [address] Discharge Disposition: Home or Self Care Attending Physician: Veronika Siddiqui FILTER PLANT OPERATOR Admitting Physician: Veronika Siddiqui NP Referring Physician: Veronika Siddiqui FILTER PLANT OPERATOR Allergies, Adverse Reactions, Alerts No Known Allergies [...] Active Nocturia Confirmed Active Obesity Confirmed Active Screening for prostate cancer Confirmed Active Snoring Confirmed Active Sun-damaged skin Confirmed Active Results Laboratory List Name Date ALT 02/14/23 AST 02/14/23 Basic Metabolic Panel 02/14/23 Lipid Panel 02/14/23 Most recent to oldest [Reference Range]: 1 BUN [7-18 mg/dL] 17 mg/dL (02/14/23 7:20 AM) Cholesterol Total [50-200 mg/dL] 136 mg/ dL (02/14/23 7:20 AM) LDL [0-130 mg/dL] 80 mg/dL (02/14/23 7:20 AM) Glucose Level [74-106 mg/dL] 115 mg/dL *HI* (02/14/23 7:20 AM) Potassium Level [3.5-5.1 mmol/L] 4.4 mmo l/L (02/14/23 7:20 AM) HDL [40-60 mg/dL] 33 mg/dL *LOW* (02/14/23 7:20 AM) AST [15-37 unit/L] 18 unit/L (02/14/23 7:20 AM) ALT [16-63 unit/L] 33 unit/L (02/14/23 7:20 AM) Sodium Level [136-145 mmol/L] 135 mmol/L *LOW* (02/14/23 7:20 AM) Triglycerides [0-150 mg/dL] 115 mg/dL (02/14/23 7:20 AM) Calcium Level [8.5-10.1 mg/dL] 9.1 mg/dL (02/14/23 7:20 AM) CO2 [21-32 mmol/L] 28 mmol/L (02/14/23 7:20 AM) eGFR Non-AA [>=60] 66 (02/14/23 7:20 AM) eGFR AA [>=60] 66 (02/14/23 7:20 AM) Chloride Level [98-107 mmol/L] 100 mmol/ L (02/14/23 7:20 AM) Creatinine Level [0.70-1.30 mg/dL] 1.20 mg/dL (02/14/23 7:20 AM) Social History Social History Type Response Tobacco Never tobacco user T obacco Use:. Sex Male Patient Care team information Care Team Personnel Name: Kamran Melendrez MD Position: No Access Member Role: Primary Care Physician Address: Address: [address] [address]- Care Team Related Persons Name: NTETIE MARIEE
--- OUTSIDE RECORDS SUMMARY | 2024-02-28 13:20 | XMS_ITS | Encounter Summary ---
Author Organization [place] [address] Care Team Providers Care Quiller Operator Name Role Phone Kamran Boo MD Primary Care Provider [phone] Encounter Details Date Type Department Care Team (Latest Contact Info) Description 12/16/2022 Travel Social History Tobacco Use Types Packs/Day Years [...] documented as of this encounter Visit Diagnoses Not on filedocumented in this encounter Care Teams Quiller Operator Relationship Specialty Start Date End Date Kamran Boo MD [address] [place] [id number] PCP - General General Internal Medicine 03/19/20 documented as of this encounter
--- OUTSIDE RECORDS SUMMARY | 2024-02-28 13:20 | XMS_ITS | Continuity of Care Document ---
Author Organization [facility] Address [address] [place] [address] Care Team Providers Care Body Builder Name Role Phone Primeau IPHC, Kamran Hoyt Primary Care Physician Encounter [facility] Date(s): 12/24/22 - 12/24/22 [facility] [address] [place] [address] Discharge Disposition: Home Allergies, Adverse Reactions, Alerts No Known Allergies [...] Snoring Confirmed Active Sun-damaged skin Confirmed Active Social History Social History Type Response Tobacco Never tobacco user T obacco Use:. Sex Male Patient Care team information Care Team Personnel Name: Ema [facility] CENT[facility] MD Position: No Access Member Role: Primary Care Physician Address: Address: [address] Care Team Related Persons Name: NETTIE MARIEE
--- OUTSIDE RECORDS SUMMARY | 2024-02-28 13:20 | XMS_ITS | Continuity of Care Document ---
Author Organization [facility] Address [address] [place] [address] Care Team Providers Care Informatica Architect Name Role Phone Primeau IPHC, Kamran Hoyt Primary Care Physician Encounter [facility] Date(s): 02/10/23 - 02/10/23 [facility] [address] [place] [address] Discharge Disposition: Home or Self Care Attending Physician: Roseanne Godinez NP Admitting Physician: Roseanne Godinez NP Referring Physician: Roseanne Godinez SUMMER INTERN Allergies, Adverse Reactions, Alerts No Known Allergies [...] Member Role: Primary Care Physician Address: Address: [id number] [place] [address] Care Team Related Persons Name: NETTIE MARIEE
--- OUTSIDE RECORDS SUMMARY | 2024-02-28 13:20 | XMS_ITS | Continuity of Care Document ---
Author Organization [facility] Address [address] [place] [address] Care Team Providers Care Music Supervisor Name Role Phone Primeau IPHC, Kamran Hoyt Primary Care Physician [facility] Date[facility] 12/24/22 - 12/24/22 [facility] [address] [place] [address] Encounter Diagnosis Snoring(Discharge Diagnosis) - 12/21/22 Discharge Disposition: Home or Self Care Attending Physician: Roseanne Godinez GLOBAL REGULATORY AFFAIRS MANAGER Allergies, Adverse Reactions, Alerts No Known Allergies Assessment and Plan Future Appointments Functional Status 12/24/22 Other exposure to Infectious Disease Non e Immunizations Given and Recorded Vaccine Date Status [...] Range]: 1 Peripheral Pulse Rate [60-100 bpm] 81 bp m (12/24/22 8:09 AM) Blood Pressure [90-140/60-90 mmHg] 147/7 7mmHg *HI* (12/24/22 8:09 AM) Weight 83.91 kg (12/24/22 8:09 AM) Weight Measured (lbs) 184.99 lb (12/24/22 8:09 AM) Height 169 cm (12/24/22 8:09 AM) Height/Length Measured (inches) 66.54 in ch (12/24/22 8:09 AM) BSA Measured 1.98 m2 (12/24/22 8:09 AM) Body Mass Index 29.38 kg/m2 (12/24/22 8:09 AM) Social History Social History Type Response Tobacco Never tobacco user T obacco Use:. Sex Male Physician Outpatient Note * Roseanne Godinez GLOBAL REGULATORY AFFAIRS MANAGER: PERFORM Event Display: Office Clinic Note Physician Authored Date: [id number] CARLOS LAMB :1955 Age:66 years Sex:Male Visit Date:12/24/2022 Primary Care Physician: Ema TAVERAS, Kamran Hoyt MD History of Present Illness Carlos Lamb is seen at the request of Veronika Siddiqui NP for evaluation of snoring and witnessed apneas in sleep. ?? Carlos has a medical history to include HTN, HLD, ED, and overweight. ?? Carlos??feels??the biggest problem with sleep is??snoring, nocturnal choking and nonrestorative sleep.??This has been going in the past 1-2 years.?? He typically goes to bed at??9 pm and it takes??15 minutes to fall asleep.??He wakes up??2-5 times a night from choking or to urinate. It takes??5 minutes to get back to sleep.??He gets up at??5 am to start the day.??He does take naps 1/day for 30 minutes.??He sleeps with someone. He??has no disturbances to sleep. ?? Quality of sleep most nights is perceived as okay. ?? Level of daytime alertness is alert to sleepy. ?? NEUROCOGNITIVE??SYMPTOMS: Has not noted poor or worsening memory. Does not have short concentration. Does not have irritability. Does not have anxiety. Does not have depression. ?? INSOMNIA SYMPTOMS: Does not have an active mind when trying to sleep. Does not have stressful or upsetting thoughts that keep them from falling asleep. Does not watch the clock often during the night. Does not worry about getting a good night of sleep. ?? BREATHING SYMPTOMS: Does snore. Does stop breathing during sleep. Does struggle to breathe/gasp while sleeping. Does feel like they are choking or throat is closing during sleep. Does breathe through mouth in sleep. Does not have nasal congestion during the night. ?? MOVEMENT SYMPTOMS: Does toss and turn at night. Does not have messy sheets after sleep. Does not have leg or arm jerks in sleep or prior to sleep. Does not have aching, restless or crawling feelings in legs at night. Does not have a hard time keeping legs still when trying to rest or sleep. Does get muscle cramps in legs at night. Does not have sleep walking or talking. ?? DREAM SYMPTOMS: Does not often have nightmares that interfere with sleep. Does not dream of drowning or suffocating. Does start to dream shortly after falling asleep. Does not see dreams in the room even when awake. Does not see or hear things that aren't really there when falling asleep or waking up. Does not see things in the road when driving that aren't really there. Has not had someone see them act out dreams while sleeping. Has not accidentally injured self in sleep when dreaming. ?? WEAKNESS SYMPTOMS: Does not feel limp, lose strength or fall asleep when angry, surprised or laughing. Does not have leg, arm or face weakness when upset. Does not have episodes of being unable to move when waking up. ?? DRIVING SYMPTOMS: Has not nearly fallen asleep when driving. Has not had an accident related to drowsy driving or not paying attention. Does not forget the last few minutes or miles driven. Does not drive out of [place] and cross center line or go onto shoulder when driving. Has had a passenger tell them they look sleepy when driving. ?? ESS today 04/08 Clermont Score 2/3 Review of Systems heartburn, ED, nocturia 2-3/night. He denies having night sweats and morning headaches. Physical Exam Vitals & Measurements HR:??81??(Peripheral)?? BP:??147/77?? SpO2:??97%?? HT:??169??cm?? WT:??83.91??kg?? BMI:??29.38?? BSA:??1.98?? GENERAL: answers questions appropriately, well groomed, over weight. HEAD: normocephalic and atraumatic. EYES: non icteric NOSE: open nasal passages, septum midline, no polyps. MOUTH: moist mucous membranes, modified mallampati score 4,tonsils without hypertrophy, lateral wall narrowing grade 3, Tongue scalloping is noted. NECK: Supple without palpable lymph nodes. LUNGS: CTA all león. Good air movement throughout. CARDIO: RRR without murmur, gallop or thrill. ABDOMEN: Soft and non tender with + bowel sounds. MUSCULOSKELETAL: good ROM all extremities, no edema. NEURO: alert and oriented, normal gait. PYSCH: normal mood and affect. CUTANEOUS: no overt lesions or rashes.?? Clinic Assessment/Plan 1.??Snoring??R06.83 Carlos has snoring, excessive daytime sleepiness (ESS 11 with a daily nap), witnessed apneas in sleep, nocturnal coking/gasping, nocturia, and a Clermont score of 2/3 indicating a high likelihood of SANDRINE.He has HTN which may be caused or worsened by untreated SANDRINE. I discussed the pathophysiology of obstructive sleep apnea and the potential consequences of untreated SANDRINE including how it relates to hissymptoms and comorbidities. I ordered a polysomnogram and discussed what will take place the night of the sleep study.??He is advised that Ambien may be offered the night of the sleep study if needed. He is advised this may cause lingering sedation and??he should not drive for at least eight hours a fter taking and caution should be used if getting up at night.?? HST was also??covered and he was made aware if this was inconclusive a PSG would be scheduled. ??I will see him back to review the results as soon as the are available. He has several alcoholic beverages a night and I explained how alcohol can negatively impact sleep quality and SANDRINE if present. I suggested he get a ride to the study so he can have the same amount ofalcohol he would on a typical night when he come sin for his study. ??I will see him back to review the results as soon as they are available. I provided greater than 40 minutes in the care of this patient, more than half the time was spent in [id number] counseling. Problem List/Past Medical History Ongoing CNH (chondrodermatitis nodularis helicis) ED (erectile dysfunction) Elevated bilirubin Foot anomaly, congenital Former smoker Heavy alcohol consumption Hyperlipidemia Hypertension Marijuana use Myalgia Nocturia Obesity Rotator cuff syndrome Screening for prostate cancer [...] Contact prescribing physician if questions or concerns ? What How Much When Comments Stop Taking atorvastatin (atorvastatin 40 mg oral tablet) 1 tab Oral (given by mouth) Every day Allergies No Known Allergies Social History Electronic Cigarette/Vaping Electronic Cigarette Use: Never. Tobacco Never tobacco user Tobacco Use:. Immunizations Vaccine Date [...] vaccine, live 03/14/2019 Recorded Electronically Signed on 12/24/22 08:40 AM Roseanne Godinez NP Patient Care team information Care Team Personnel Name: Kamran Melendrez MD Position: No Access Member Role: Primary Care Physician Address: Address: [address] Care Team Related Persons Name: NETTIE MARIEE
--- OUTSIDE RECORDS SUMMARY | 2024-02-28 13:20 | XMS_ITS | Referral Summary ---
Author Organization [facility] Address [address] [place] [address] Care Team Providers Care Funeral Service Apprentice Name Role Phone Unavailable Primary Care Provider Unavailabl e Social History Tobacco Use Types Packs/Day Years Used Date Smoking Tobacco: Never Assessed Sex and Gender Information Value Date Recorded Sex Assigned at Not on file Gender Identity Not on file Sexual Orientation Not on file Plan of Treatment Not on file
--- OUTSIDE RECORDS SUMMARY | 2024-02-28 13:20 | XMS_ITS | Continuity of Care Document ---
Author Organization [facility] Address [address] [place] [address] Care Team Providers Care Juice Packaging Machines Setter Name Role Phone Kamran Melendrez Primary Care Physician [facility]counter [facility] Date(s): 11/22/22 - 11/22/22 [facility] [address] [place] [address] Immunizations Given and Recorded Vaccine Date Status [...] live 03/14/19 Recorded 1Result Comment: BIVALENT BOOSTER Social History Social History Type Response Sex Male Patient Care team information Care Team Personnel Name: Kamran Melendrez MD Position: No Access Member Role: Primary Care Physician Address: Address: [address] [address] Care Team Related Persons Name: NETTIE MARIEE
--- OUTSIDE RECORDS SUMMARY | 2024-02-28 13:20 | XMS_ITS | Continuity of Care Document ---
Author Organization [facility] Address [address] [place] [address] Care Team Providers Care Marketing Trainee Name Role Phone Kamran Nation Primary Care Physician Encounter [facility] Date(s): 09/23/22 - 09/23/22 [facility] [address] [place] [address] Discharge Disposition: Home or Self Care Attending Physician: Kamran Melendrez MD Admitting Physician: Kamran Melendrez MD Referring Physician: Kamran Melendrez MD Immunizations Given and Recorded Vaccine Date Status [...] live 03/14/19 Recorded 1Result Comment: [employer] Results Laboratory List Name Date Lipid Panel 09/23/22 Most recent to oldest [Reference Range]: 1 Cholesterol Total [50-200 mg/dL] 112 mg/ dL (09/23/22 7:26 AM) LDL [0-130 mg/dL] 65 mg/dL (09/23/22 7:26 AM) HDL [40-60 mg/dL] 35 mg/dL *LOW* (09/23/22 7:26 AM) Triglycerides [0-150 mg/dL] 61 mg/dL (09/23/22 7:26 AM) Social History Social History Type Response Sex Male Patient Care team information Care Team Personnel Name: Kamran Nation MD Position: Physician Member Role: Primary Care Physician Address: Address: [address] [place] [id number] [place] Care Team Related Persons Name: NETTIE MARIEE
--- OUTSIDE RECORDS SUMMARY | 2024-02-28 13:20 | XMS_ITS | Continuity of Care Document ---
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 Phone [facility], Kamran Hoyt Primary Care Physician [facility] 06[facility]03/23 [facility] [address] [place] [address] Encounter Diagnosis Obstructive sleep apnea, adult(Discharge Diagnosis) - 05/31/23 Discharge Disposition: Home or Self Care Attending Physician: Roseanne Godinez [employer] Allergies, Adverse Reactions, Alerts No Known Allergies [...] Obesity Confirmed Active Obstructive sleep apnea, adult 1 Confirmed Active Screening for prostate cancer Confirmed Active Snoring Confirmed Active Sun-damaged skin Confirmed Active 1CPAP 6-16 cm [employer] Vital Signs Most recent to oldest [Reference Range]: 1 Weight 83.91 kg (06/03/23 11:16 AM) Weight Measured (lbs) 184.99 lb (06/03/23 11:16 AM) Weight Dosing 83.910 kg (06/03/23 11:16 AM) Height 169 cm (06/03/23 11:16 AM) Height/Length Measured (inches) 66.54 in ch (06/03/23 11:16 AM) BSA Measured 1.98 m2 (06/03/23 11:16 AM) Body Mass Index 29.38 kg/m2 (06/03/23 11:16 AM) Social History Social History Type Response Tobacco Former tobacco user Tobacco Use:. Sex Male Progress note * Marbin Hawkins: PERFORM Event Display: Progress Note - Physician Authored Date: [id number] Physician Outpatient Note * Roseanne Godinez [employer]: PERFORM Event Display: Office Clinic Note Physician Authored Date: [id number] CARLOS LAMB :1955 Age:67 years Sex:Male Visit Date:06/03/2023 Primary Care Physician: Ema [facility], Kamran Hoyt MD History of Present Illness Carlos Lamb has a Zoom visit for SANDRINE follow-up. He has given consent to have a telehealth visit. Patient is at home, provider is at home. ?? Carlos was see by me on 03/04/2023. He has a medical history to include HTN, HLD, ED, and overweight. ?? He noted symptoms of snoring, excessive daytime sleepiness (ESS 11 with a daily nap), witnessed apneas in sleep, nocturnal choking/gasping, and??nocturia. ?? Polysomnogram was completed on??02/10/2023 (BMI 29.4). Sleep efficiency was 63%, AHI 34.9/hr, RDI 54.7/hr, REM AHI 41.4/hr, REM RDI 54.3/hr, supine AHI 35/hr, right lateral AHI N/A, left lateral AHI N/A, sp02 yevgeniy 79%,??28 minutes were spent at a saturation <88%, arousal index 47/hr, PLMi 1.7/hr, PLM arousal index 0/hr. EKG showed NSR with rare PVCs. ?? Last visit I ordered CPAP 6-16 cm. ?? Carlos tells me he is using CPAP every night. Has had someone see them act out dreams while sleeping. He says he has dreamed of falling off a ephraim and he is grabbing for a branch and he is actuallygrabbing onto his . Last was a month ago and tends to happen once every month or two. says thatit is a life changer and I wish I would have done it years. He says it took a few nights to get used to but he is doing well now. He is using a FFM and tolerates this well. He is aware of occasional air leaks. The CPAP pressure feels ok. He is breathing normally. His snoring is gone with CPAP, he feels significantly better rested with CPAP (he only occasionally takes a power nap now), there is no more nocturnal choking/gasping and his nocturia has significantly improved. ?? ESS today 09/06 COMPLIANCE DATA REVIEWED WITH PATIENT: Dates 05/03/23-06/01/23,??Days used?? 30, average use??7 hours,??32 minutes,??median pressure 10.6??cm,??95 th percentile pressure??14.1??cm,??95 th percentile air leak 31.6??lpm, AHI ??3.2/hr. Physical Exam Vitals & Measurements HT:??169??cm?? WT:??83.91??kg?? BMI:??29.38?? BSA:??1.98?? Clinic Assessment/Plan 1.??Obstructive sleep apnea, adult??G47.33 SANDRINE diagnosed on PSG with an AHI of 35/hr. He slept only supine for the study but he reports he typically only sleeps supine at home as well. He recently started on??CPAP 6-16 cm. He has excellent compliance and reduction in AHI. He has seen significant improvement in his daytime sleepiness, snoring and nocturia and continued use of CPAP is recommended. He is advised to keep up with the routine maintenance of the machine and to clean/replace parts as needed. I will see him back in one year. He is asked to call our office for any sleep related questions or concerns. I provided greater than 20 minutes in the care of this patient, more than half the time was spent in [id number] counseling. [facility] Problem [facility]/Past Medical History Ongoing CNH (chondrodermatitis [...] vaccine, live 03/14/2019 Recorded Electronically Signed on 06/03/23 11:29 AM Roseanne Godinez NP Patient Care team information Care Team Personnel Name: Kamran Melendrez MD Position: No Access Member Role: Primary Care Physician Address: Address: [id number] [place] [address] Care Team Related Persons Name: NETTIE MARIEE
[2024-02-28 19:57] LABS: ALT 34 U/L (16-63); AST 23 U/L (15-37); Alkaline Phosphatase 84 U/L (46-116); Anion Gap 9.3 mmol/L (3-11); BUN 18 mg/dL (7-18); Bilirubin, Total 0.99 mg/dL (0.2-1.0); CO2 25.7 mmol/L (21.0-32.0); CREATININE 1.2 mg/dL (0.70-1.30); Calcium 9.7 mg/dL (8.5-10.1); Chloride 105 mmol/L (98-107); Estimated GFR 65.87 (mL/min/1.73m2); Glucose 114 mg/dL (74-106); Potassium 4.6 mmol/L (3.5-5.1); Sodium 140 mmol/L (136-145); Total Protein 7.7 g/dL (6.4-8.2)
== END 2024-02-28 13:09 | disposition home or self-care (01) ==
LOC: NCHCN 13:08
PROVIDERS: PCP Nurse Practitioner Family; Visit Provider Nurse Practitioner Family
DX: E78.5 Hyperlipidemia, unspecified (principal)
CPT/HCPCS: 80053

== ENCOUNTER 2024-04-19 13:50 | Outpatient (REF) | payer MEDICARE, SELFPAY ==
[2024-04-19 19:26] LABS: Abs Immature Grans 0.04 10^3/uL (0.0-0.06); Absolute Basophil Count 0.07 10^3/uL (0.0-0.2); Absolute Eosinophil Count 0.19 10^3/uL (0.0-0.7); Absolute Lymphocyte Count 1.33 10^3/uL (1.2-3.4); Absolute Monocyte Count 1.02 10^3/uL (0.1-0.8); Absolute Neutrophil Count 7.59 10^3/uL (1.2-6.7); Basophils % 0.7 %; Eosinophils % 1.9 %; HCT 48.4 % (40.0-50.0); Immature Grans % 0.4 %; MCH 30.7 pg (27.0-33.0); MCHC 35.1 % (32.0-36.0); MCV 87 fL (80-95); MPV 11.1 fL (8.0-11.0); Platelet Count 177 10^3/uL (130-400); RBC 5.54 10^6/uL (4.36-5.78); RDW 12.6 % (11.8-14.1); RDW-SD 40.8 fL; WBC 10.24 10^3/uL (4.4-10.8)
[2024-04-19 20:03] LABS: ALT 41 U/L (16-63); AST 25 U/L (15-37); Albumin 4.1 g/dL (3.4-5.0); Alkaline Phosphatase 80 U/L (46-116); BUN 17 mg/dL (7-18); CREATININE 1.2 mg/dL (0.70-1.30); Calcium 9.7 mg/dL (8.5-10.1); Chloride 103 mmol/L (98-107); Estimated GFR 65.87 (mL/min/1.73m2); Glucose 109 mg/dL (74-106); Potassium 4.7 mmol/L (3.5-5.1); Sodium 139 mmol/L (136-145); Total Protein 8.3 g/dL (6.4-8.2)
== END 2024-04-19 13:51 | disposition home or self-care (01) ==
LOC: NCHCN 13:50
PROVIDERS: PCP Nurse Practitioner Family; Visit Provider Physician Assistant
DX: R10.32 Left lower quadrant pain (principal)
CPT/HCPCS: 80053; 85025

== ENCOUNTER 2024-08-28 12:16 | Outpatient (REF) | payer MEDICARE, SELFPAY ==
[2024-08-28 19:45] LABS: Calculated LDL 66 mg/dL (<100); Cholesterol 110 mg/dL (<200); HDL Cholesterol 37 mg/dL (>or=40); Triglyceride 37 mg/dL (<150)
== END 2024-08-28 12:17 | disposition home or self-care (01) ==
LOC: NCHCN 12:16
PROVIDERS: PCP Nurse Practitioner Family; Visit Provider Nurse Practitioner Family
DX: E78.5 Hyperlipidemia, unspecified
CPT/HCPCS: 80061

== ENCOUNTER 2025-02-25 09:17 | Outpatient (REF) | payer MEDICARE, SELFPAY ==
[2025-02-25 20:03] LABS: ALT 35 U/L (16-63); AST 23 U/L (15-37); Albumin 4.1 g/dL (3.4-5.0); Alkaline Phosphatase 79 U/L (46-116); Anion Gap 8.6 mmol/L (3-11); BUN 20 mg/dL (7-18); Bilirubin, Total 1.4 mg/dL (0.2-1.0); CO2 28.4 mmol/L (21.0-32.0); Calcium 9.1 mg/dL (8.5-10.1); Chloride 101 mmol/L (98-107); Estimated GFR 81.47 (mL/min/1.73m2); Glucose 105 mg/dL (74-106); Potassium 4.4 mmol/L (3.5-5.1); Sodium 138 mmol/L (136-145); Total Protein 7.9 g/dL (6.4-8.2)
== END 2025-02-25 09:18 | disposition home or self-care (01) ==
LOC: NCHCN 09:17
PROVIDERS: PCP Nurse Practitioner Family; Visit Provider Nurse Practitioner Family
DX: I10 Essential (primary) hypertension (principal)
CPT/HCPCS: 80053